=== PATIENT | female | born 1955 | race Caucasian/White ===

== ENCOUNTER 2016-11-20 10:52 | Emergency (ER) | payer MEDICARE, MEDICAID ==
[~2016-11-20] VITALS: Ht 162.6 cm; Wt 71.0 kg
[~2016-11-20 10:52] MED LIST: ALBU8.5H5 INH; ASPI-515 PO; BECL8.7A6 INH; CALC-545 PO; CHOL10003 PO; DOCU250C63 PO; ETOD400T PO; FLUT9.9S NAS; HYDR-3307 PO; HYDR25TA6 PO; IBUP-1221 PO; IPRA12.9 INH; LISI40TA PO; LORA1TAB PO; LOSA100T6 PO; LOVA20TA2 PO; METH750T2 PO; METR500T PO; NITR1PAT26 TD; NORT50CA PO; OLAN10TA9 PO; OMEP-110 PO; POTA20TA14 PO; PROC25SU25 PR; TRAM50TA2 PO; ZOLP-413 PO; [UNRECOGNIZED DRUG - CODE] PO
[2016-11-20] MEDS ORDERED: SODIUM CHLORIDE 0.9% 1,000 ML IV ONE (11:01)
[2016-11-20 11:17] LABS: HEMATOCRIT 39.4 % (34.6-47.8); HEMOGLOBIN 13.6 g/dL (11.7-16.4); WHITE BLOOD COUNT 7.6 x10^3/uL (3.4-10)
[2016-11-20 11:30] LABS: ASPARTATE AMINO TRANSFERASE 31 U/L (15-37); BLOOD UREA NITROGEN 6 mg/dL (7-18)
[2016-11-20] MEDS ORDERED: SODIUM CHLORIDE FLUSH 10ML SYR IVF ONE (11:30)
[2016-11-20] MEDS ORDERED: LORazepam 2 MG/ML, 1ML IVPush ONE (11:30)
[2016-11-20 11:36] LABS: IS PT STATUS REG ER OR PRE ER? YES
[2016-11-20 12:18] VITALS: BP 166/90
[2016-11-20] MEDS ORDERED: LORazepam 1MG TABLET ONE (13:19)
[2016-11-20] MEDS ORDERED: LORazepam 0.5MG TABLET PO ONE (13:30)
== END 2016-11-20 13:32 | disposition home or self-care (01) ==
LOC: ED 13:00
DX: R07.89 Other chest pain (principal); I11.9 Hypertensive heart disease without heart failure; J44.9 Chronic obstructive pulmonary disease, unspecified; Z88.0 Allergy status to penicillin; Z88.1 Allergy status to other antibiotic agents; Z88.2 Allergy status to sulfonamides; Z88.8 Allergy status to other drugs, medicaments and biological substances
CPT/HCPCS: 36415; 71010; 80053; 84484; 85025; 93005; 96360; 96361; 99285; J7030

== ENCOUNTER 2016-11-22 07:26 | Day surgery (SDC) | payer MEDICARE, MEDICAID ==
[~2016-11-22] VITALS: Ht 162.6 cm; Wt 75.0 kg
[2016-11-22 08:12] VITALS: BP 196/91
[2016-11-22 08:18] LABS: HEMOGLOBIN 14.1 g/dL (11.7-16.4); WHITE BLOOD COUNT 5.7 x10^3/uL (3.4-10)
[2016-11-22 08:29] LABS: HEMATOCRIT 41.2 % (34.6-47.8)
[2016-11-22] MEDS ORDERED: MIDAZOLAM 1 MG/ML, 5ML ONE (08:35)
[2016-11-22] MEDS ORDERED: FENTANYL PF 100 MCG/2ML ONE (08:35)
[2016-11-22] MEDS ORDERED: HEPARIN 1,000 UNITS/ML, 10ML ONE (08:36)
[2016-11-22] MEDS ORDERED: BIVALIRUDIN 250 MG ONE (08:36)
[2016-11-22] MEDS ORDERED: VERAPAMIL 2.5 MG/ML, 2ML ONE (08:36)
[2016-11-22 08:38] LABS: BLOOD UREA NITROGEN 8 mg/dL (7-18)
[2016-11-22] MEDS ORDERED: METO25TA91 PO (08:51)
[2016-11-22] MEDS ORDERED: RISP0.5T3 PO (08:51)
[2016-11-22] MEDS ORDERED: GABA300C10 PO (08:51)
[2016-11-22] MEDS ORDERED: CLON0.1T PO (08:51)
[2016-11-22] MEDS ORDERED: NITR0.4T SL (08:51)
[2016-11-22] MEDS ORDERED: ACET500T76 PO (08:51)
[2016-11-22] MEDS ORDERED: ASPI-496 PO (08:51)
[2016-11-22] MEDS ORDERED: OMEP-110 PO (08:51)
[2016-11-22] MEDS ORDERED: IBUP-1222 PO (08:51)
[2016-11-22] MEDS ORDERED: LOSA100T6 PO (08:51)
[2016-11-22] MEDS ORDERED: TRAM50TA2 PO (08:51)
[2016-11-22] MEDS ORDERED: CYCL-259 PO (08:51)
[2016-11-22] MEDS ORDERED: DIPH25CA61 PO (08:51)
[2016-11-22] MEDS ORDERED: Lidoderm TD (08:51)
[2016-11-22] MEDS ORDERED: SODIUM CHLORIDE 0.9% 1,000 ML IV SCH (09:40)
[2016-11-22] MEDS ORDERED: LOSARTAN 50MG TABLET PO ONE (10:43)
[2016-11-22] MEDS ORDERED: METOPROLOL TARTRATE 25 MG TABLET PO ONE (10:43)
[2016-11-22] MEDS ORDERED: LABETALOL 5MG/ML, 20ML IVPush PRN (11:00)
[2016-11-22] MEDS ORDERED: ACETAMINOPHEN 325 MG TABLET ONE (11:14)
[2016-11-22] MEDS ORDERED: LABETALOL 5MG/ML, 20ML ONE (13:08)
== END 2016-11-22 14:39 ==
LOC: CACL 07:26
PROVIDERS: ATTEND Internal Medicine Cardiovascular Disease
DX: I25.10 Atherosclerotic heart disease of native coronary artery without angina pectoris (principal); F41.9 Anxiety disorder, unspecified; I10 Essential (primary) hypertension; J44.9 Chronic obstructive pulmonary disease, unspecified; F32.9 Major depressive disorder, single episode, unspecified; Z88.1 Allergy status to other antibiotic agents; Z88.0 Allergy status to penicillin; Z88.8 Allergy status to other drugs, medicaments and biological substances
CPT/HCPCS: 36415; 80048; 85025; 85610; 85730; 93458; 99156; 99157; C1894; J1644; J2250; J3010; Q9967; J0583

== ENCOUNTER 2017-03-01 11:17 | Emergency (ER) | payer MEDICARE, MEDICAID ==
[~2017-03-01] VITALS: Ht 162.6 cm; Wt 75.0 kg
[~2017-03-01 11:17] MED LIST changes: +ACET500T76 PO; +ASPI-496 PO; +CLON0.1T PO; +CYCL-259 PO; +DIPH25CA61 PO; +GABA300C10 PO; +IBUP-1222 PO; +Lidoderm TD; +METO25TA91 PO; +NITR0.4T SL; +RISP0.5T3 PO
[2017-03-01] MEDS ORDERED: LORazepam 1MG TABLET ONE (12:54)
[2017-03-01] MEDS ORDERED: KETOROLAC 30 MG/1 ML ONE (12:54)
[2017-03-01] MEDS ORDERED: LORazepam 1MG TABLET PO ONE (13:00)
[2017-03-01] MEDS ORDERED: KETOROLAC 30 MG/1 ML IM ONE (13:00)
[2017-03-01 13:04] VITALS: BP 133/91
== END 2017-03-01 13:05 | disposition home or self-care (01) ==
LOC: ED 12:03
DX: S20.212A Contusion of left front wall of thorax, initial encounter (principal); S80.01XA Contusion of right knee, initial encounter; S40.011A Contusion of right shoulder, initial encounter; I10 Essential (primary) hypertension; E11.9 Type 2 diabetes mellitus without complications; W19.XXXA Unspecified fall, initial encounter; Y99.8 Other external cause status; Y93.89 Activity, other specified; Y92.89 Other specified places as the place of occurrence of the external cause
CPT/HCPCS: 71020; 96372; 99284; J1885

== ENCOUNTER → 2017-06-10 | Outpatient (CLI) | payer MEDICARE, MEDICAID ==
[2017-06-10 15:46] LABS: BASOPHILS # (AUTO) 0.02 x10^3/uL (0-0.1); BASOPHILS % (AUTO) 0 % (0-1); EOSINOPHILS # (AUTO) 0.01 x10^3/uL (0-0.4); EOSINOPHILS % (AUTO) 0 % (1-7); LYMPHOCYTES # (AUTO) 1.39 x10^3/uL (1-3.4); LYMPHOCYTES % (AUTO) 14 % (22-44); MD NO; MEAN CORPUSCULAR HGB CONC 33.1 g/dL (32.4-35.8); MEAN CORPUSCULAR VOLUME 96.8 fL (80-100); MEAN PLATELET VOLUME 9.3 fL (7.4-10.4); MONOCYTES # (AUTO) 0.67 x10^3/uL (0.2-0.8); MONOCYTES % (AUTO) 7 % (2-9); NEUTROPHILS # (AUTO) 7.95 x10^3/uL (1.8-6.8); NEUTROPHILS % (AUTO) 79 % (42-75); PLATELET COUNT 247 x10^3/uL (130-400); RED BLOOD COUNT 4.58 x10^6/uL (3.82-5.3); RED CELL DISTRIBUTION WIDTH 13.4 % (9.6-15.2)
[2017-06-10 15:56] LABS: ALBUMIN 3.6 g/dL (3.4-5.0); ANION GAP 7 mmol/L (5-15); CALCIUM 8.4 mg/dL (8.5-10.1); CHLORIDE 109 mmol/L (98-107)
[2017-06-10 16:07] LABS: ALANINE AMINOTRANSFERASE 32 U/L (12-78); ALKALINE PHOSPHATASE 59 U/L (45-117); BILIRUBIN,TOTAL 0.4 mg/dL (0.2-1.0); CHOL/HDL RATIO 2.3; CHOLESTEROL, TOTAL 142 mg/dL (140-239); CREATININE 0.85 mg/dL (0.55-1.02); FREE T4 (FREE THYROXINE) 1.31 ng/dL (0.76-1.46); HDL CHOL % 43 % (28-40); HDL CHOLESTEROL (DIRECT) 61 mg/dL (40-60); LDL CHOLESTEROL,CALCULATED 60 mg/dL (54-169); THYROID STIMULATING HORMONE 0.112 mIU/L (0.358-3.740); TOTAL PROTEIN 7.2 g/dL (6.4-8.2); TRIGLYCERIDES 104 mg/dL (50-200); VLDL CHOLESTEROL 21 mg/dL (0-25)
== END | disposition home or self-care (01) ==
LOC: LAB 12:25
PROVIDERS: ATTEND Registered Nurse
DX: M54.5 Low back pain (principal); I10 Essential (primary) hypertension; E11.9 Type 2 diabetes mellitus without complications; Z79.899 Other long term (current) drug therapy
CPT/HCPCS: 36415; 80053; 80061; 84439; 84443; 85025

== ENCOUNTER → 2018-01-09 | Outpatient (CLI) | payer MEDICARE, MEDICAID ==
[~2018-01-09] MED LIST changes: +BUDE10.22 INH; +CHOL5000 PO; -LOSA100T6 PO; +LOSA100T7 PO; +METO-99 PO; -NORT50CA PO; +NORT50CA52 PO; +TIZA2TAB PO; +UMEC1DIS INH; +ZOLP5TAB6 PO
[2018-01-09 13:07] LABS: BASOPHILS # (AUTO) 0.02 x10^3/uL (0-0.1); BASOPHILS % (AUTO) 0 % (0-1); EOSINOPHILS # (AUTO) 0.07 x10^3/uL (0-0.4); EOSINOPHILS % (AUTO) 1 % (1-7); LYMPHOCYTES # (AUTO) 1.67 x10^3/uL (1-3.4); LYMPHOCYTES % (AUTO) 23 % (22-44); MD NO; MEAN CORPUSCULAR HEMOGLOBIN 31.8 pg (27.0-34.8); MEAN CORPUSCULAR HGB CONC 33.8 g/dL (32.4-35.8); MEAN CORPUSCULAR VOLUME 94.1 fL (80-100); MEAN PLATELET VOLUME 9.5 fL (7.4-10.4); MONOCYTES # (AUTO) 0.51 x10^3/uL (0.2-0.8); MONOCYTES % (AUTO) 7 % (2-9); NEUTROPHILS # (AUTO) 5.05 x10^3/uL (1.8-6.8); NEUTROPHILS % (AUTO) 69 % (42-75); PLATELET COUNT 249 x10^3/uL (130-400); RED BLOOD COUNT 4.91 x10^6/uL (3.82-5.3); RED CELL DISTRIBUTION WIDTH 13.2 % (9.6-15.2)
[2018-01-09 13:15] LABS: ALBUMIN 3.8 g/dL (3.4-5.0); ANION GAP 6 mmol/L (5-15); CALCIUM 9.2 mg/dL (8.5-10.1); CHLORIDE 112 mmol/L (98-107); GAMMA GLUTAMYL TRANSPEPTIDASE 45 U/L (5-55)
[2018-01-09 13:19] LABS: ALANINE AMINOTRANSFERASE 29 U/L (12-78); ALKALINE PHOSPHATASE 92 U/L (45-117); BILIRUBIN,TOTAL 0.4 mg/dL (0.2-1.0); CREATININE 0.85 mg/dL (0.55-1.02)
== END | disposition home or self-care (01) ==
LOC: CFH 10:30
PROVIDERS: ATTEND Physician Assistant
DX: B18.2 Chronic viral hepatitis C (principal); Z86.010 Personal history of colon polyps
CPT/HCPCS: 36415; 80053; 82107; 82977; 85025; 86038; 86705; 86803; 87521

== ENCOUNTER → 2018-02-02 | Outpatient (CLI) | payer MEDICARE, MEDICAID | END | disposition home or self-care (01) | LOC: CFH 07:05 | PROVIDERS: ATTEND Physician Assistant | DX: B18.2 Chronic viral hepatitis C (principal); Z90.49 Acquired absence of other specified parts of digestive tract | CPT/HCPCS: 76700 ==

== ENCOUNTER 2018-04-15 11:24 | Outpatient (CLI) | payer MEDICARE, MEDICAID ==
[~2018-04-15 11:24] MED LIST changes: -CLON0.1T PO; +CLON0.1T22 PO; +LOSA100T14 PO; -LOSA100T7 PO
[2018-04-15 11:47] LABS: BASOPHILS # (AUTO) 0.03 x10^3/uL (0-0.1); BASOPHILS % (AUTO) 1 % (0-1); EOSINOPHILS # (AUTO) 0.05 x10^3/uL (0-0.4); EOSINOPHILS % (AUTO) 1 % (1-7); LYMPHOCYTES # (AUTO) 1.93 x10^3/uL (1-3.4); LYMPHOCYTES % (AUTO) 32 % (22-44); MD NO; MEAN CORPUSCULAR HEMOGLOBIN 31.6 pg (27.0-34.8); MEAN CORPUSCULAR VOLUME 92.9 fL (80-100); MEAN PLATELET VOLUME 8.9 fL (7.4-10.4); MONOCYTES # (AUTO) 0.38 x10^3/uL (0.2-0.8); MONOCYTES % (AUTO) 6 % (2-9); NEUTROPHILS # (AUTO) 3.62 x10^3/uL (1.8-6.8); NEUTROPHILS % (AUTO) 60 % (42-75); PLATELET COUNT 195 x10^3/uL (130-400); RED BLOOD COUNT 4.53 x10^6/uL (3.82-5.3); RED CELL DISTRIBUTION WIDTH 13.2 % (9.6-15.2)
[2018-04-15 12:01] LABS: ALBUMIN 3.4 g/dL (3.4-5.0); ANION GAP 2 mmol/L (5-15); CALCIUM 9.4 mg/dL (8.5-10.1); CHLORIDE 105 mmol/L (98-107)
[2018-04-15 12:05] LABS: ALANINE AMINOTRANSFERASE 29 U/L (12-78); ALKALINE PHOSPHATASE 92 U/L (45-117); BILIRUBIN,TOTAL 0.6 mg/dL (0.2-1.0); CHOLESTEROL, TOTAL 163 mg/dL (140-239); CREATININE 0.94 mg/dL (0.55-1.02); HDL CHOL % 34 % (28-40); HDL CHOLESTEROL (DIRECT) 55 mg/dL (40-60); LDL CHOLESTEROL,CALCULATED 86 mg/dL (54-169); LDL/HDL RATIO 1.6 (0.5-3.0); TOTAL PROTEIN 7.4 g/dL (6.4-8.2); TRIGLYCERIDES 111 mg/dL (50-200); VLDL CHOLESTEROL 22 mg/dL (0-25)
== END 2018-04-15 23:59 | disposition home or self-care (01) ==
LOC: LAB 11:24
PROVIDERS: ATTEND Physician Assistant
DX: Z51.81 Encounter for therapeutic drug level monitoring (principal); I10 Essential (primary) hypertension; B18.2 Chronic viral hepatitis C; Z86.010 Personal history of colon polyps
CPT/HCPCS: 36415; 80053; 80061; 85025; 86038; 86704; 87522

== ENCOUNTER 2018-06-26 13:56 | Outpatient (CLI) | payer MEDICARE, MEDICAID ==
[2018-06-26 14:28] LABS: BASOPHILS # (AUTO) 0.05 x10^3/uL (0-0.1); BASOPHILS % (AUTO) 1 % (0-1); EOSINOPHILS # (AUTO) 0.05 x10^3/uL (0-0.4); EOSINOPHILS % (AUTO) 1 % (1-7); LYMPHOCYTES % (AUTO) 14 % (22-44); MD NO; MEAN CORPUSCULAR HEMOGLOBIN 32.1 pg (27.0-34.8); MEAN CORPUSCULAR HGB CONC 34.4 g/dL (32.4-35.8); MEAN CORPUSCULAR VOLUME 93.2 fL (80-100); MEAN PLATELET VOLUME 8.4 fL (7.4-10.4); MONOCYTES # (AUTO) 0.49 x10^3/uL (0.2-0.8); MONOCYTES % (AUTO) 5 % (2-9); NEUTROPHILS # (AUTO) 7.23 x10^3/uL (1.8-6.8); NEUTROPHILS % (AUTO) 79 % (42-75); PLATELET COUNT 230 x10^3/uL (130-400)
[2018-06-26 14:38] LABS: ANION GAP 8 mmol/L (5-15); CALCIUM 9.5 mg/dL (8.5-10.1); CHLORIDE 109 mmol/L (98-107)
[2018-06-26 14:43] LABS: ALANINE AMINOTRANSFERASE 35 U/L (12-78); ALKALINE PHOSPHATASE 90 U/L (45-117); BILIRUBIN,TOTAL 0.8 mg/dL (0.2-1.0); CHOL/HDL RATIO 3.5; CHOLESTEROL, TOTAL 196 mg/dL (140-239); CREATININE 0.77 mg/dL (0.55-1.02); HDL CHOL % 29 % (28-40); HDL CHOLESTEROL (DIRECT) 56 mg/dL (40-60); LDL CHOLESTEROL,CALCULATED 122 mg/dL (54-169); LDL/HDL RATIO 2.2 (0.5-3.0); TRIGLYCERIDES 92 mg/dL (50-200); VLDL CHOLESTEROL 18 mg/dL (0-25)
[2018-06-26 14:45] LABS: HEMOGLOBIN A1C 5.6 % (4.2-6.3)
== END 2018-06-26 23:59 | disposition home or self-care (01) ==
LOC: LAB 13:56
PROVIDERS: ATTEND Registered Nurse
DX: B18.2 Chronic viral hepatitis C (principal); E78.5 Hyperlipidemia, unspecified; I10 Essential (primary) hypertension; I25.10 Atherosclerotic heart disease of native coronary artery without angina pectoris; J44.9 Chronic obstructive pulmonary disease, unspecified; J96.11 Chronic respiratory failure with hypoxia; Z79.899 Other long term (current) drug therapy
CPT/HCPCS: 36415; 80053; 80061; 82306; 83036; 85025

== ENCOUNTER 2018-08-22 23:48 | Emergency (ER) | payer MEDICARE, MEDICAID ==
[~2018-08-22] VITALS: Ht 162.6 cm; Wt 81.0 kg
[~2018-08-22 23:48] MED LIST changes: -NITR0.4T SL; +NITR0.4T41 SL
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
[2018-08-23] MEDS ORDERED: MORPHINE SULFATE 4 MG/ML, 1ML IVPush PRN (00:30)
[2018-08-23] MEDS ORDERED: LORazepam 2 MG/ML, 1ML IVPush ONE (00:30)
[2018-08-23] MEDS ORDERED: ONDANSETRON 2MG/ML, 2ML IVPush ONE (00:30)
[2018-08-23] MEDS ORDERED: SODIUM CHLORIDE 0.9% 1,000ML IVBOLUS ONE (00:30)
--- NOTE | 2018-08-23 00:35 | NUR ---
received report from ZEUS Chinchilla.
[2018-08-23] MEDS ORDERED: ONDANSETRON 2MG/ML, 2ML ONE (00:49)
[2018-08-23] MEDS ORDERED: LORazepam 2 MG/ML, 1ML ONE (00:50)
[2018-08-23] MEDS ORDERED: MORPHINE SULFATE 4 MG/ML, 1ML ONE (00:50)
--- NOTE | 2018-08-23 00:50 | NUR ---
IV placed. blood drawn and sent to lab. [facility]. medicated for pain and nausea.
[2018-08-23 01:05] LABS: BASOPHILS # (AUTO) 0.07 x10^3/uL (0-0.1); BASOPHILS % (AUTO) 1 % (0-1); EOSINOPHILS # (AUTO) 0.06 x10^3/uL (0-0.4); EOSINOPHILS % (AUTO) 1 % (1-7); LYMPHOCYTES # (AUTO) 1.92 x10^3/uL (1-3.4); LYMPHOCYTES % (AUTO) 22 % (22-44); MD NO; MEAN CORPUSCULAR HEMOGLOBIN 32.1 pg (27.0-34.8); MEAN CORPUSCULAR HGB CONC 32.7 g/dL (32.4-35.8); MEAN CORPUSCULAR VOLUME 97.9 fL (80-100); MEAN PLATELET VOLUME 7.9 fL (7.4-10.4); MONOCYTES # (AUTO) 0.77 x10^3/uL (0.2-0.8); MONOCYTES % (AUTO) 9 % (2-9); NEUTROPHILS # (AUTO) 5.86 x10^3/uL (1.8-6.8); NEUTROPHILS % (AUTO) 67 % (42-75); PLATELET COUNT 252 x10^3/uL (130-400); RED BLOOD COUNT 3.97 x10^6/uL (3.82-5.3); RED CELL DISTRIBUTION WIDTH 13.5 % (9.6-15.2)
[2018-08-23 01:17] LABS: ALANINE AMINOTRANSFERASE 22 U/L (12-78); ALBUMIN 3.4 g/dL (3.4-5.0); ANION GAP 7 mmol/L (5-15); CALCIUM 9.1 mg/dL (8.5-10.1); CHLORIDE 110 mmol/L (98-107)
[2018-08-23 01:21] LABS: ALKALINE PHOSPHATASE 64 U/L (45-117); BILIRUBIN,TOTAL 0.3 mg/dL (0.2-1.0); TOTAL PROTEIN 7.3 g/dL (6.4-8.2); TROPONIN I < 0.015 ng/mL (0.000-0.045)
--- NOTE | 2018-08-23 02:16 | NUR ---
back from CT scan and X ray. awaiting results.
--- NOTE | 2018-08-23 03:19 | NUR ---
labs and ct scan resulted. chart up for MD to re-eval. patient sleeping. VSS.
--- NOTE | 2018-08-23 03:54 | NUR ---
ERP at bedside for re-evaluation.
[2018-08-23 04:04] VITALS: BP 129/67
--- NOTE | 2018-08-23 04:33 | NUR ---
patient discharged with instruction. verbalized understanding. wheeled to Discharge area.
== END 2018-08-23 04:35 | disposition home or self-care (01) ==
LOC: ED 08-23 03:14
DX: G89.21 Chronic pain due to trauma (principal); M54.6 Pain in thoracic spine; F41.1 Generalized anxiety disorder; L03.116 Cellulitis of left lower limb; E11.9 Type 2 diabetes mellitus without complications; I10 Essential (primary) hypertension; J44.9 Chronic obstructive pulmonary disease, unspecified; R42 Dizziness and giddiness; Z86.19 Personal history of other infectious and parasitic diseases; Z90.49 Acquired absence of other specified parts of digestive tract
CPT/HCPCS: 36415; 71045; 72072; 72125; 73502; 80053; 84484; 85025; 93005; 96361; 96374; 96375; 99284; J2060; J2270; J2405; J7030

== ENCOUNTER 2018-10-14 10:06 | Outpatient (CLI) | payer MEDICARE, MEDICAID ==
[~2018-10-14 10:06] MED LIST changes: -HYDR-3307 PO; +HYDR-36 PO; -TIZA2TAB PO; +TIZA2TAB2 PO
[2018-10-14 10:24] LABS: BASOPHILS # (AUTO) 0.03 x10^3/uL (0-0.1); BASOPHILS % (AUTO) 0 % (0-1); EOSINOPHILS # (AUTO) 0.14 x10^3/uL (0-0.4); EOSINOPHILS % (AUTO) 2 % (1-7); LYMPHOCYTES # (AUTO) 1.82 x10^3/uL (1-3.4); LYMPHOCYTES % (AUTO) 24 % (22-44); MD NO; MEAN CORPUSCULAR HEMOGLOBIN 32.5 pg (27.0-34.8); MEAN CORPUSCULAR HGB CONC 33.5 g/dL (32.4-35.8); MEAN CORPUSCULAR VOLUME 96.9 fL (80-100); MEAN PLATELET VOLUME 8.8 fL (7.4-10.4); MONOCYTES # (AUTO) 0.51 x10^3/uL (0.2-0.8); MONOCYTES % (AUTO) 7 % (2-9); NEUTROPHILS # (AUTO) 5.14 x10^3/uL (1.8-6.8); NEUTROPHILS % (AUTO) 67 % (42-75); PLATELET COUNT 221 x10^3/uL (130-400); RED BLOOD COUNT 4.75 x10^6/uL (3.82-5.3); RED CELL DISTRIBUTION WIDTH 12.6 % (9.6-15.2)
[2018-10-14 12:45] LABS: CHLORIDE 108 mmol/L (98-107)
[2018-10-14 12:58] LABS: ALANINE AMINOTRANSFERASE 19 U/L (12-78); ALBUMIN 3.6 g/dL (3.4-5.0); ALKALINE PHOSPHATASE 67 U/L (45-117); ANION GAP 4 mmol/L (5-15); BILIRUBIN,TOTAL 0.5 mg/dL (0.2-1.0); CHOL/HDL RATIO 3.7; CHOLESTEROL, TOTAL 243 mg/dL (140-239); CREATININE 0.82 mg/dL (0.55-1.02); HDL CHOL % 27 % (28-40); HDL CHOLESTEROL (DIRECT) 65 mg/dL (40-60); LDL CHOLESTEROL,CALCULATED 158 mg/dL (54-169); LDL/HDL RATIO 2.4 (0.5-3.0); TOTAL PROTEIN 7.7 g/dL (6.4-8.2); TRIGLYCERIDES 100 mg/dL (50-200); VLDL CHOLESTEROL 20 mg/dL (0-25)
== END 2018-10-14 23:59 | disposition home or self-care (01) ==
LOC: LAB 10:06
PROVIDERS: ATTEND Internal Medicine Cardiovascular Disease
DX: E78.5 Hyperlipidemia, unspecified (principal); I10 Essential (primary) hypertension; I25.10 Atherosclerotic heart disease of native coronary artery without angina pectoris; J44.9 Chronic obstructive pulmonary disease, unspecified; J96.11 Chronic respiratory failure with hypoxia
CPT/HCPCS: 36415; 80053; 80061; 85025; 87522

== ENCOUNTER 2019-03-25 11:58 | Inpatient (IN) | payer MEDICARE, MEDICAID ==
[~2019-03-25] VITALS: Ht 162.6 cm; Wt 79.4 kg
[~2019-03-25 11:58] MED LIST changes: +HYDR-3246 PO; -HYDR-36 PO; -TIZA2TAB2 PO; +TIZA2TAB4 PO
--- NOTE | 2019-03-25 13:24 | NUR ---
BRANCH ACCOUNT MANAGER: PT TO ROOM FROM LOBBY, GAIT SLOW AND STEADY
[2019-03-25] MEDS ORDERED: NITROGLYCERIN SINGLE TAB 0.4 MG SL ONE (14:19)
[2019-03-25] MEDS ORDERED: ASPIRIN 81 MG TABLET CHEW ONE (14:19)
[2019-03-25] MEDS ORDERED: ASPIRIN 81 MG TABLET CHEW PO ONE (14:30)
[2019-03-25] MEDS ORDERED: NITROGLYCERIN SINGLE TAB 0.4 MG SL PRN (14:30)
--- NOTE | 2019-03-25 14:38 | NUR ---
attempt x2 for labs/iv, failed. meds per may. cxr done. call bills in reach. as
--- NOTE | 2019-03-25 15:12 | NUR ---
cxr NEW SMALL FOCUS OF SUBSEGMENTAL ATELECTASIS/PATCHY PULMONARY OPACITY AT THE LEFT LUNG BASE
[2019-03-25] MEDS ORDERED: SODIUM CHLORIDE FLUSH 10ML SYR IVF ONE (15:30)
[2019-03-25 15:32] LABS: BASOPHILS # (AUTO) 0.02 x10^3/uL (0-0.1); BASOPHILS % (AUTO) 0 % (0-1); EOSINOPHILS # (AUTO) 0.06 x10^3/uL (0-0.4); EOSINOPHILS % (AUTO) 1 % (1-7); LYMPHOCYTES # (AUTO) 1.52 x10^3/uL (1-3.4); LYMPHOCYTES % (AUTO) 19 % (22-44); MD NO; MEAN CORPUSCULAR HEMOGLOBIN 31.9 pg (27.0-34.8); MEAN CORPUSCULAR HGB CONC 33.6 g/dL (32.4-35.8); MEAN PLATELET VOLUME 8.2 fL (7.4-10.4); MONOCYTES # (AUTO) 0.52 x10^3/uL (0.2-0.8); MONOCYTES % (AUTO) 7 % (2-9); NEUTROPHILS # (AUTO) 5.85 x10^3/uL (1.8-6.8); NEUTROPHILS % (AUTO) 73 % (42-75); PLATELET COUNT 227 x10^3/uL (130-400); RED BLOOD COUNT 3.31 x10^6/uL (3.82-5.3); RED CELL DISTRIBUTION WIDTH 14.1 % (9.6-15.2)
[2019-03-25 15:37] LABS: ALBUMIN 3.8 g/dL (3.4-5.0); ANION GAP 5 mmol/L (5-15); CALCIUM 9.1 mg/dL (8.5-10.1); CHLORIDE 113 mmol/L (98-107)
[2019-03-25 15:41] LABS: TROPONIN I < 0.015 ng/mL (0.000-0.045)
--- NOTE | 2019-03-25 15:46 | NUR ---
oob to bathroom steady gait up for recheck. as
--- NOTE | 2019-03-25 15:48 | NUR ---
pt took home tramadol per dr. willard for pain.as
[2019-03-25] MEDS ORDERED: OLAN20TA10 PO (17:52)
[2019-03-25] MEDS ORDERED: methylPREDNISolone SOD SUCC 40 MG/ML ONE (18:23)
[2019-03-25] MEDS ORDERED: LEVOFLOXACIN/PMX 750MG/150ML 150 ML ONE (18:23)
[2019-03-25] MEDS ORDERED: ENOXAPARIN 40 MG/0.4 ML ONE (18:23)
[2019-03-25] MEDS ORDERED: ACETAMINOPHEN 325 MG TABLET PO PRN (18:30)
[2019-03-25] MEDS ORDERED: hydrALAzine 20 MG/ML, 1ML IVPush PRN (18:30)
[2019-03-25] MEDS ORDERED: ONDANSETRON 2MG/ML, 2ML IVPush PRN (18:30)
[2019-03-25] MEDS: LEVOFLOXACIN/PMX 750MG/150ML 150 ML IV SCH (18:38)
[2019-03-25] MEDS: methylPREDNISolone SOD SUCC 40 MG/ML IV SCH (18:38)
[2019-03-25] MEDS: ENOXAPARIN 40 MG/0.4 ML SQ SCH (18:38)
[2019-03-25 18:47] LABS: TROPONIN I < 0.015 ng/mL (0.000-0.045)
--- NOTE | 2019-03-25 20:00 | NUR ---
pt continually oob to bathroom, pacing around room. eating. asking for coffee/pain meds. sts chest pain is improved. nsr on mointor 70s.
[2019-03-25] MEDS: TEMPLATE NON-FORMULARY MED. (Budesonide/Formoterol Fumarate (Symbicort 80-4.5 Mcg Inhaler) INH SCH (21:00)
[2019-03-25] MEDS: LAMOTRIGINE 200 MG TABLET PO SCH ×2 (21:00→21:41)
[2019-03-25] MEDS: METOPROLOL TARTRATE 100 MG TAB PO SCH (21:00)
[2019-03-25] MEDS: ALBUTEROL SULFATE 2.5 MG/3 ML NPPB SCH (21:00)
[2019-03-25] MEDS ORDERED: GABAPENTIN 300 MG CAPSULE ONE (21:19)
[2019-03-25] MEDS ORDERED: OMEPRAZOLE 20 MG CAPSULE.DR ONE (21:19)
[2019-03-25] MEDS ORDERED: METOPROLOL TARTRATE 25 MG TAB ONE (21:19)
[2019-03-25] MEDS: GABAPENTIN 300 MG CAPSULE PO SCH (21:24)
[2019-03-25] MEDS: OMEPRAZOLE 20 MG CAPSULE.DR PO SCH (21:24)
[2019-03-25] MEDS ORDERED: ALBUTEROL SULFATE 2.5MG/0.5ML NPPB PRN (21:30)
[2019-03-25] MEDS ORDERED: HYDROcodone/APAP 10/325 MG TABLET ONE (21:50)
[2019-03-25] MEDS: HYDROcodone/APAP 10/325 MG TABLET PO PRN (21:52)
--- NOTE | 2019-03-25 21:54 | NUR ---
pt oob to phone in hallway and back. placed on 2 lnc. c/o anxiety re: dog. given hydrocodone for back pain. vss. as
[2019-03-25] MEDS ORDERED: ALBUTEROL SULFATE 2.5 MG/3 ML ONE (22:08)
--- NOTE | 2019-03-26 00:06 | NUR ---
PT SITTING IN BED WRITING. NSR ON MONITOR. VSS. BP IMPROVED. NO COMPLAINTS AT THIS TIME. STS PAIN IMPROVED AFTER NORCO. STS TIGHTNESS IN CHEST IMPROVED AT THIS MOMENT. AWAITING BED, CALL GODFREY IN REACH.
[2019-03-26 00:43] LABS: TROPONIN I < 0.015 ng/mL (0.000-0.045)
--- NOTE | 2019-03-26 00:49 | NUR ---
REPORT FROM ZEUS ACOSTA.
--- NOTE | 2019-03-26 01:21 | NUR ---
PT FOUND SMOKING CIGARETTE IN PATIENT RESTROOM. ERP NOTIFIED. PT COOPERATIVE ABOUT PUTTING IT OUT, OFFERED A NICOTINE PATCH AT THIS TIME. DENIES ANY FURTHER NEEDS OR CONCERNS AT THIS TIME, CALL LIGHT IN REACH.
[2019-03-26] MEDS ORDERED: NICOTINE 14MG/24 HR PATCH.TD24 TD ONE (01:30)
[2019-03-26] MEDS: ALBUTEROL SULFATE 2.5 MG/3 ML NPPB SCH ×4 (03:00→20:26)
[2019-03-26] MEDS ORDERED: ALBUTEROL SULFATE 2.5 MG/3 ML ONE (03:43)
--- NOTE | 2019-03-26 03:53 | NUR ---
PT PROVIDED WITH SNACKS, ICE PACKS, AND BLANK PAPER PER REQUEST. PT WISHES TO BE DISCHARGED SO THAT SHE CAN TAKE CARE OF HER DOG. HOSPITALIST CALLED AND NOTIFIED, STATES THEY WILL REASSESS HER IN THE MORNING. PT DENIES ANY FURTHER NEEDS OR CONCERNS AT THIS TIME. CALL LIGHT IN REACH.
[2019-03-26 04:44] LABS: BASOPHILS % (AUTO) 0 % (0-1); EOSINOPHILS % (AUTO) 0 % (1-7); LYMPHOCYTES # (AUTO) 0.47 x10^3/uL (1-3.4); LYMPHOCYTES % (AUTO) 9 % (22-44); MD NO; MEAN CORPUSCULAR HEMOGLOBIN 31.6 pg (27.0-34.8); MEAN CORPUSCULAR HGB CONC 33.3 g/dL (32.4-35.8); MEAN CORPUSCULAR VOLUME 94.7 fL (80-100); MONOCYTES # (AUTO) 0.03 x10^3/uL (0.2-0.8); MONOCYTES % (AUTO) 1 % (2-9); NEUTROPHILS # (AUTO) 4.49 x10^3/uL (1.8-6.8); NEUTROPHILS % (AUTO) 90 % (42-75); PLATELET COUNT 279 x10^3/uL (130-400); RED BLOOD COUNT 3.76 x10^6/uL (3.82-5.3); RED CELL DISTRIBUTION WIDTH 13.8 % (9.6-15.2)
[2019-03-26 04:54] LABS: ANION GAP 6 mmol/L (5-15); CALCIUM 9.6 mg/dL (8.5-10.1); CHLORIDE 108 mmol/L (98-107); CREATININE 0.85 mg/dL (0.55-1.02)
[2019-03-26 04:57] LABS: TROPONIN I < 0.015 ng/mL (0.000-0.045)
--- NOTE | 2019-03-26 05:45 | NUR ---
PT DOES NOT WANT TO SLEEP. WALKING IN HALLWAY WITH SUNGLASSES ON, GOWN ON BACKWARDS AND TIED ACROSS SHOULDER LIKE A TOGA. ASSISTED BACK TO BED. PT HAS MANY COMPLAINTS, AND HAS WRITTEN A 3 PAGE LIST OF REQUESTS ON BLANK PAPER, INCLUDING A LONG NOTE EXPLAINING THAT SHE SHOULD BE DISCHARGED THIS MORNING IN ORDER TO BETTER CARE FOR HER DOG. PT EMOTIONALLY LABILE, BUT REDIRECTABLE. CALL LIGHT IN REACH.
[2019-03-26] MEDS ORDERED: HYDROcodone/APAP 10/325 MG TABLET ONE ×3 (05:49→16:26)
[2019-03-26] MEDS ORDERED: methylPREDNISolone SOD SUCC 40 MG/ML ONE (07:29)
[2019-03-26] MEDS ORDERED: NICOTINE 14MG/24 HR PATCH.TD24 ONE (07:30)
[2019-03-26] MEDS ORDERED: METOPROLOL TARTRATE 50 MG TAB ONE (07:30)
[2019-03-26] MEDS ORDERED: GABAPENTIN 300 MG CAPSULE ONE ×2 (07:30→16:26)
[2019-03-26] MEDS ORDERED: OMEPRAZOLE 20 MG CAPSULE.DR ONE (07:30)
[2019-03-26] MEDS ORDERED: ASPIRIN 81 MG TABLET EC ONE (07:30)
--- NOTE | 2019-03-26 08:07 | NUR ---
PT RESTING NEXT TO HOSPITAL BED, WRITING IN JOURNAL. PT STATES SHE IS WEARING A HAT AND NEEDS TO BREAK IT IN FOR HER SISTERS BIRTHDAY. PT REQUESTING BREATHMINTS. PT STATES SHE WILL NEED TO GO HOME SO SHE CAN "HAND FEED HER DYING PUPPY" PT STATES, "I CAN TAKE MY PICC LINE HOME AND HAVE A NURSE COME TO MY HOUSE" PT REDIRECTED, THIS RN EXPLAINED TO PT REASON FOR ADMIT, STAFF IS UNABLE TO DISCHARGE PT HOME WITH PIV IN ARM AND LET A NURSE GO HOME WITH HER. VSS AT THIS TIME, AWAITING BREAKFAST TRAY. AWAITING MEDICATIONS FROM PHARMACY Addendum: 03/26/19 at 1125 by Everest SoftwareNajma Amendment undone in EDM - 03/26/19 at 1126 by SynforaSTACIE PT NOT REFUSING CARDIAC MONITORING EQUIPMENT AT THIS TIME, PT WOULD LIKE TO WONDER IN THE HALLS TO HELP WITH ANXIETY Addendum: 03/26/19 at 1127 by SynforaSTACIE PT REFUSING CARDIAC MONITORING EQUIPMENT AT THIS TIME, PT WOULD LIKE TO WONDER IN THE HALLS TO HELP WITH ANXIETY
[2019-03-26] MEDS: LAMOTRIGINE 200 MG TABLET PO SCH ×2 (08:39→21:12)
[2019-03-26] MEDS: methylPREDNISolone SOD SUCC 40 MG/ML IV SCH ×2 (08:39→20:14)
[2019-03-26] MEDS: METOPROLOL TARTRATE 100 MG TAB PO SCH ×2 (08:39→21:12)
[2019-03-26] MEDS: ASPIRIN 81 MG TABLET EC PO SCH (08:39)
[2019-03-26] MEDS: HYDROcodone/APAP 10/325 MG TABLET PO PRN ×3 (08:40→21:12)
[2019-03-26] MEDS: OMEPRAZOLE 20 MG CAPSULE.DR PO SCH ×2 (08:40→21:11)
[2019-03-26] MEDS: LOSARTAN 100 MG TAB PO SCH (08:40)
[2019-03-26] MEDS: GABAPENTIN 300 MG CAPSULE PO SCH ×3 (08:40→21:12)
[2019-03-26] MEDS: TEMPLATE NON-FORMULARY MED. (Budesonide/Formoterol Fumarate (Symbicort 80-4.5 Mcg Inhaler) INH SCH ×2 (08:46→21:07)
[2019-03-26] MEDS: OLANZAPINE 20 MG PO SCH (08:47)
[2019-03-26] MEDS: BUDESONIDE 0.5 MG/2 ML INHA NPPB SCH ×2 (09:00→20:26)
--- NOTE | 2019-03-26 09:49 | NUR ---
REPORT FROM MOISE SCHULZ. AT THIS TIME PT IS SITTING UP IN BED. PT EXPRESSES CONCERNS OF WANTING TO LEAVE TO TAKE CARE OF A SICK DOG AT HOME. PT EDUCATED ON THE NEED FOR STAYING BUT INFORMED THAT PROVIDER WOULD BE MADE AWARE OF CONCERNS.
--- NOTE | 2019-03-26 11:20 | NUR ---
PT RESTING IN BED AT THIS TIME. EQUAL CHEST RISE AND FALL OBSERVED FROM DOOR. CALL LIGHT IN REACH.
--- NOTE | 2019-03-26 11:55 | NUR ---
REPORT TO MEHRAN SCHULZ
--- NOTE | 2019-03-26 12:02 | NUR ---
PT STANDING AT BEDSIDE ARRANGING HER PAPERWORK. PT SAT FOR VS. KHOURY. PT ANXIOUS ABOUT DOG AT HOME AND IF FRIEND IS TAKING GOOD CARE OF IT.
--- NOTE | 2019-03-26 13:30 | NUR ---
PT AMBULATING BACK AND FORTH FROM ROOM TO PHONE ON THE WALL IN THE HALLWAY. PT AMBULATES WITH STEADY GAIT. PENG
--- NOTE | 2019-03-26 15:16 | NUR ---
PT LAYING ON HOSPITAL BED ON HER PHONE.
--- NOTE | 2019-03-26 15:58 | NUR ---
PLEASE ADMIT TO MEDICAL WITH TELEMETRY PER CURTIS BECKER.
--- NOTE | 2019-03-26 16:29 | NUR ---
MEDS ADMIN PER MAY.
--- NOTE | 2019-03-26 16:33 | NUR ---
PT SITTNG ON SIDE OF BED. NADN. SPEAKING IN FULL SENTENCES.
--- NOTE | 2019-03-26 17:20 | NUR ---
REPORT GIVEN TO JOSH SCHULZ.
[2019-03-26 19:33] VITALS: BP 174/85
[2019-03-26] MEDS: LEVOFLOXACIN/PMX 750MG/150ML 150 ML IV SCH (20:14)
[2019-03-26] MEDS: ENOXAPARIN 40 MG/0.4 ML SQ SCH (20:15)
[2019-03-26] MEDS: GUAIFENESIN 200 MG TABLET PO SCH (21:11)
[2019-03-26] MEDS: ZOLPIDEM 5MG TABLET PO PRN (21:12)
[2019-03-27] VITALS (12 sets, daily range): BP systolic 127–191; BP diastolic 61–97
[2019-03-27] MEDS: ALBUTEROL SULFATE 2.5 MG/3 ML NPPB SCH ×4 (01:27→20:06)
[2019-03-27] MEDS: HYDROcodone/APAP 10/325 MG TABLET PO PRN ×4 (03:16→20:43)
[2019-03-27 05:20] LABS: ANION GAP 9 mmol/L (5-15); CALCIUM 9.5 mg/dL (8.5-10.1); CHLORIDE 107 mmol/L (98-107)
[2019-03-27 05:21] LABS: CREATININE 0.92 mg/dL (0.55-1.02)
[2019-03-27] MEDS: GUAIFENESIN 200 MG TABLET PO SCH ×4 (05:28→20:41)
[2019-03-27 05:35] LABS: BASOPHILS # (AUTO) 0.01 x10^3/uL (0-0.1); BASOPHILS % (AUTO) 0 % (0-1); EOSINOPHILS % (AUTO) 0 % (1-7); LYMPHOCYTES # (AUTO) 0.56 x10^3/uL (1-3.4); LYMPHOCYTES % (AUTO) 6 % (22-44); MD NO; MEAN CORPUSCULAR HEMOGLOBIN 31.8 pg (27.0-34.8); MEAN CORPUSCULAR HGB CONC 33.1 g/dL (32.4-35.8); MONOCYTES % (AUTO) 4 % (2-9); NEUTROPHILS # (AUTO) 8.75 x10^3/uL (1.8-6.8); NEUTROPHILS % (AUTO) 90 % (42-75); PLATELET COUNT 292 x10^3/uL (130-400); RED BLOOD COUNT 3.76 x10^6/uL (3.82-5.3); RED CELL DISTRIBUTION WIDTH 13.8 % (9.6-15.2)
[2019-03-27] MEDS: ASPIRIN 81 MG TABLET EC PO SCH (09:19)
[2019-03-27] MEDS: LAMOTRIGINE 200 MG TABLET PO SCH ×2 (09:19→20:42)
[2019-03-27] MEDS: OMEPRAZOLE 20 MG CAPSULE.DR PO SCH ×2 (09:19→20:42)
[2019-03-27] MEDS: GABAPENTIN 300 MG CAPSULE PO SCH ×3 (09:19→20:42)
[2019-03-27] MEDS: LACTOBACILLUS CHEW TABLET PO SCH ×3 (09:19→20:42)
[2019-03-27] MEDS: METOPROLOL TARTRATE 100 MG TAB PO SCH ×2 (09:19→20:43)
[2019-03-27] MEDS: TEMPLATE NON-FORMULARY MED. (Budesonide/Formoterol Fumarate (Symbicort 80-4.5 Mcg Inhaler) INH SCH ×2 (09:21→20:36)
[2019-03-27] MEDS: OLANZAPINE 20 MG PO SCH (09:22)
[2019-03-27] MEDS: BUDESONIDE 0.5 MG/2 ML INHA NPPB SCH ×2 (09:43→20:06)
[2019-03-27] MEDS: SODIUM CHLORIDE 0.9% 1,000 ML IV SCH (11:14)
[2019-03-27] MEDS: ACETAMINOPHEN 325 MG TABLET PO PRN ×2 (11:29→16:31)
[2019-03-27] MEDS: LOSARTAN 100 MG TAB PO SCH (11:29)
[2019-03-27] MEDS ORDERED: OLAN10TA9 PO (13:59)
[2019-03-27] MEDS ORDERED: LIDODERM 5% PATCH TD SCH (14:00)
[2019-03-27] MEDS ORDERED: IBUPROFEN 200 MG TABLET PO PRN (14:00)
[2019-03-27] MEDS ORDERED: BISACODYL 10 MG SUPP PR PRN (18:00)
[2019-03-27] MEDS ORDERED: OLANZAPINE 5 MG TABLET ONE (20:08)
[2019-03-27] MEDS: ENOXAPARIN 40 MG/0.4 ML SQ SCH (20:38)
[2019-03-27] MEDS: OLANZAPINE 10 MG TABLET PO SCH (20:41)
[2019-03-27] MEDS: ZOLPIDEM 5MG TABLET PO PRN (20:43)
[2019-03-27] MEDS ORDERED: SENNA/DOCUSATE TABLET PO SCH (21:00)
[2019-03-28 01:08] VITALS: BP 125/70
[2019-03-28] MEDS ORDERED: LIDODERM REMOVE PATCH NOTE XX SCH (02:00)
[2019-03-28] MEDS: ALBUTEROL SULFATE 2.5 MG/3 ML NPPB SCH ×2 (03:00→08:58)
[2019-03-28] MEDS: ACETAMINOPHEN 325 MG TABLET PO PRN (04:02)
[2019-03-28] MEDS: GUAIFENESIN 200 MG TABLET PO SCH ×2 (04:03→12:17)
[2019-03-28] MEDS: HYDROcodone/APAP 10/325 MG TABLET PO PRN ×2 (04:03→09:19)
[2019-03-28] MEDS: SODIUM CHLORIDE 0.9% 1,000 ML IV SCH (04:03)
[2019-03-28 07:01] VITALS: BP 132/95
[2019-03-28] MEDS: TEMPLATE NON-FORMULARY MED. (Budesonide/Formoterol Fumarate (Symbicort 80-4.5 Mcg Inhaler) INH SCH (09:00)
[2019-03-28] MEDS: OLANZAPINE 20 MG PO SCH (09:00)
[2019-03-28] MEDS: OLANZAPINE 10 MG TABLET PO SCH (09:18)
[2019-03-28] MEDS: OMEPRAZOLE 20 MG CAPSULE.DR PO SCH (09:18)
[2019-03-28] MEDS: GABAPENTIN 300 MG CAPSULE PO SCH (09:18)
[2019-03-28] MEDS: ASPIRIN 81 MG TABLET EC PO SCH (09:18)
[2019-03-28] MEDS: METOPROLOL TARTRATE 100 MG TAB PO SCH (09:18)
[2019-03-28] MEDS: LOSARTAN 100 MG TAB PO SCH (09:57)
[2019-03-28] MEDS: LAMOTRIGINE 200 MG TABLET PO SCH (09:57)
[2019-03-28] MEDS: LACTOBACILLUS CHEW TABLET PO SCH (09:57)
[2019-03-28] MEDS ORDERED: ACID1TAB7 PO (10:57)
[2019-03-28] MEDS ORDERED: HYDR-3343 PO (10:57)
[2019-03-28] MEDS ORDERED: SENN-193 PO (10:57)
[2019-03-28] MEDS ORDERED: ATOR40TA78 PO (11:00)
[2019-03-28] MEDS ORDERED: NICOTINE 21 MG/24 HR PATCH.TD24 TD ONE (12:00)
[2019-03-28 13:37] VITALS: BP 158/78
[2019-08-05] MEDS ORDERED: ACID1CAP PO (17:57)
[2019-08-05] MEDS ORDERED: DOCU100C33 PO (17:57)
[2019-08-05] MEDS ORDERED: OLAN10TA7 PO (17:57)
[2019-08-05] MEDS ORDERED: HYDR-3245 PO (17:57)
[2019-08-05] MEDS ORDERED: ZOLP5TAB6 PO (17:57)
[2019-08-05] MEDS ORDERED: SIMV20TA19 PO (17:57)
[2019-08-05] MEDS ORDERED: GABA-827 PO (17:57)
[2019-08-05] MEDS ORDERED: LACT10SO PO-COUM (18:14)
[2019-08-05] MEDS ORDERED: BENZ-17 PO (18:14)
[2019-08-05] MEDS ORDERED: HALO5TAB5 PO (18:14)
[2019-08-05] MEDS ORDERED: PRED20TA PO (18:14)
[2019-08-05] MEDS ORDERED: CLIN300C8 PO (18:14)
[2019-08-05] MEDS ORDERED: NITR100C PO (18:14)
[2019-08-05] MEDS ORDERED: NALO0.4D2 IM (18:14)
[2019-08-05] MEDS ORDERED: IBUP-1223 PO (18:14)
[2019-08-05] MEDS ORDERED: ERGO500017 PO (18:14)
[2019-08-05] MEDS ORDERED: TIOT18CA INH (18:14)
[2019-08-05] MEDS ORDERED: NALO25TA PO (18:14)
[2019-08-05] MEDS ORDERED: NITR0.4T28 SL (18:14)
[2019-08-05] MEDS ORDERED: LACT1CAP3 PO (18:14)
[2019-08-05] MEDS ORDERED: NICO-487 TD (18:14)
[2019-08-05] MEDS ORDERED: TRAM50TA2 PO (18:14)
[2019-08-05] MEDS ORDERED: LAMO100T8 PO (18:14)
[2019-08-05] MEDS ORDERED: ALBUTEROL SUL 90 MCG INH (18:21)
[2019-08-05] MEDS ORDERED: VITAMIN B-12 INJ (18:24)
[2019-08-05] MEDS ORDERED: LIDO700A20 TD (18:26)
[2019-08-05] MEDS ORDERED: VISCOUS LIDOCAINE EXT (18:28)
[2019-08-05] MEDS ORDERED: L. A1CAP8 PO (18:30)
[2019-08-05] MEDS ORDERED: PLEC3TAB PO (18:32)
[2019-08-05] MEDS ORDERED: SENN1TAB94 PO (18:32)
[2019-08-05] MEDS ORDERED: VERA120T8 PO (18:32)
[2019-08-05] MEDS ORDERED: VIT1TABL46 PO (18:34)
[2019-08-06] MEDS ORDERED: METO-99 PO (11:14)
[2019-08-06] MEDS ORDERED: FLUT9.9S NAS (11:14)
[2019-08-06] MEDS ORDERED: ERGO500018 PO (11:14)
[2019-08-06] MEDS ORDERED: CYCL-259 PO (11:14)
[2019-08-06] MEDS ORDERED: ACET-1600 PO (11:14)
== END 2019-03-28 15:41 | disposition home or self-care (01) | DRG 191 ==
LOC: ED 16:31 → EDIP 16:32 → ED 16:52 → 4EST 03-26 18:28
PROVIDERS: ADMIT Hospitalist; ATTEND Internal Medicine
DX: J44.1 Chronic obstructive pulmonary disease with (acute) exacerbation (principal); J98.11 Atelectasis; E11.9 Type 2 diabetes mellitus without complications; F10.20 Alcohol dependence, uncomplicated; F17.200 Nicotine dependence, unspecified, uncomplicated; F31.9 Bipolar disorder, unspecified; F43.10 Post-traumatic stress disorder, unspecified; F60.3 Borderline personality disorder; W18.39XA Other fall on same level, initial encounter; G47.00 Insomnia, unspecified; F41.9 Anxiety disorder, unspecified; I10 Essential (primary) hypertension; I25.10 Atherosclerotic heart disease of native coronary artery without angina pectoris; I34.1 Nonrheumatic mitral (valve) prolapse; Z95.5 Presence of coronary angioplasty implant and graft; Z90.49 Acquired absence of other specified parts of digestive tract; Z90.89 Acquired absence of other organs; Z71.6 Tobacco abuse counseling; Y93.89 Activity, other specified; Y92.098 Other place in other non-institutional residence as the place of occurrence of the external cause; Y99.8 Other external cause status; Z88.1 Allergy status to other antibiotic agents; Z88.5 Allergy status to narcotic agent; Z88.0 Allergy status to penicillin; Z88.2 Allergy status to sulfonamides; Z88.8 Allergy status to other drugs, medicaments and biological substances; Z79.899 Other long term (current) drug therapy; Z79.82 Long term (current) use of aspirin; Z79.51 Long term (current) use of inhaled steroids; Z83.3 Family history of diabetes mellitus; Z82.49 Family history of ischemic heart disease and other diseases of the circulatory system; Z82.5 Family history of asthma and other chronic lower respiratory diseases; Z79.84 Long term (current) use of oral hypoglycemic drugs
CPT/HCPCS: 36415; 36600; 71045; 73523; 80048; 82040; 82803; 84145; 84484; 85025; 93005; 93306; 94640; 99285; G0378; J1650; J1956; J7613; J7626; J2920; J7030

== ENCOUNTER 2019-03-30 01:43 | Emergency (ER) | payer MEDICARE, MEDICAID ==
[~2019-03-30 01:43] MED LIST changes: +ACID1TAB7 PO; +ATOR40TA78 PO; +HYDR-3343 PO; +OLAN20TA10 PO; +SENN-193 PO
[2019-03-30 01:45] VITALS: BP 103/62
[2019-08-05] MEDS ORDERED: ZOLP5TAB6 PO (17:57)
[2019-08-05] MEDS ORDERED: SIMV20TA19 PO (17:57)
[2019-08-05] MEDS ORDERED: ACID1CAP PO (17:57)
[2019-08-05] MEDS ORDERED: GABA-827 PO (17:57)
[2019-08-05] MEDS ORDERED: DOCU100C33 PO (17:57)
[2019-08-05] MEDS ORDERED: OLAN10TA7 PO (17:57)
[2019-08-05] MEDS ORDERED: HYDR-3245 PO (17:57)
[2019-08-05] MEDS ORDERED: TIOT18CA INH (18:14)
[2019-08-05] MEDS ORDERED: LAMO100T8 PO (18:14)
[2019-08-05] MEDS ORDERED: NALO0.4D2 IM (18:14)
[2019-08-05] MEDS ORDERED: NITR100C PO (18:14)
[2019-08-05] MEDS ORDERED: TRAM50TA2 PO (18:14)
[2019-08-05] MEDS ORDERED: PRED20TA PO (18:14)
[2019-08-05] MEDS ORDERED: BENZ-17 PO (18:14)
[2019-08-05] MEDS ORDERED: HALO5TAB5 PO (18:14)
[2019-08-05] MEDS ORDERED: LACT10SO PO-COUM (18:14)
[2019-08-05] MEDS ORDERED: NITR0.4T28 SL (18:14)
[2019-08-05] MEDS ORDERED: ERGO500017 PO (18:14)
[2019-08-05] MEDS ORDERED: LACT1CAP3 PO (18:14)
[2019-08-05] MEDS ORDERED: IBUP-1223 PO (18:14)
[2019-08-05] MEDS ORDERED: CLIN300C8 PO (18:14)
[2019-08-05] MEDS ORDERED: NICO-487 TD (18:14)
[2019-08-05] MEDS ORDERED: NALO25TA PO (18:14)
[2019-08-05] MEDS ORDERED: ALBUTEROL SUL 90 MCG INH (18:21)
[2019-08-05] MEDS ORDERED: VITAMIN B-12 INJ (18:24)
[2019-08-05] MEDS ORDERED: LIDO700A20 TD (18:26)
[2019-08-05] MEDS ORDERED: VISCOUS LIDOCAINE EXT (18:28)
[2019-08-05] MEDS ORDERED: L. A1CAP8 PO (18:30)
[2019-08-05] MEDS ORDERED: SENN1TAB94 PO (18:32)
[2019-08-05] MEDS ORDERED: PLEC3TAB PO (18:32)
[2019-08-05] MEDS ORDERED: VERA120T8 PO (18:32)
[2019-08-05] MEDS ORDERED: VIT1TABL46 PO (18:34)
[2019-08-06] MEDS ORDERED: METO-99 PO (11:14)
[2019-08-06] MEDS ORDERED: ACET-1600 PO (11:14)
[2019-08-06] MEDS ORDERED: CYCL-259 PO (11:14)
[2019-08-06] MEDS ORDERED: ERGO500018 PO (11:14)
[2019-08-06] MEDS ORDERED: FLUT9.9S NAS (11:14)
== END 2019-03-30 04:14 | disposition home or self-care (01) ==
LOC: ED 02:44
DX: S09.90XA Unspecified injury of head, initial encounter (principal); M54.5 Low back pain; I10 Essential (primary) hypertension; R51 Headache; W19.XXXA Unspecified fall, initial encounter; Y93.89 Activity, other specified; Y92.098 Other place in other non-institutional residence as the place of occurrence of the external cause; Y99.8 Other external cause status
CPT/HCPCS: 36415; 70450; 72131; 80048; 80307; 82040; 85025; 99283; 99284

== ENCOUNTER 2019-03-30 22:27 | Emergency (ER) | payer MEDICARE, MEDICAID ==
[~2019-03-30] VITALS: Ht 162.6 cm; Wt 75.0 kg
[~2019-03-30 22:27] MED LIST changes: -HYDR-3246 PO; +HYDR-36 PO; +TIZA2TAB2 PO; -TIZA2TAB4 PO
--- NOTE | 2019-03-30 22:43 | NUR ---
PT BIB EMS TRANSFER FROM [facility], WENT TO [facility] EARLIER TODAY AND SAID SHE WANTED TO KILL HERSELF BY OVERDOSING ON COCAINE AND HEROIN. PT BELONGINGS 7 OF 7 REMOVED AND PLACED IN LOCKER AT THIS TIME. PT PLACED IN GOWN, SITTER IN HALLWAY WITHIN LINE OF SIGHT. ERP AT BS TO ALYSHA PT.
[2019-03-30 22:49] VITALS: BP 152/70
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
--- NOTE | 2019-03-30 23:10 | NUR ---
ROOM SECURED, SITTER IN HALLWAY WITHIN LINE OF SIGHT.
[2019-03-30 23:11] LABS: BASOPHILS # (AUTO) 0.01 x10^3/uL (0-0.1); BASOPHILS % (AUTO) 0 % (0-1); EOSINOPHILS # (AUTO) 0.12 x10^3/uL (0-0.4); EOSINOPHILS % (AUTO) 2 % (1-7); LYMPHOCYTES # (AUTO) 2.38 x10^3/uL (1-3.4); LYMPHOCYTES % (AUTO) 29 % (22-44); MD NO; MEAN CORPUSCULAR HEMOGLOBIN 32.1 pg (27.0-34.8); MEAN CORPUSCULAR HGB CONC 33.7 g/dL (32.4-35.8); MEAN CORPUSCULAR VOLUME 95.1 fL (80-100); MEAN PLATELET VOLUME 7.3 fL (7.4-10.4); MONOCYTES # (AUTO) 0.53 x10^3/uL (0.2-0.8); MONOCYTES % (AUTO) 7 % (2-9); NEUTROPHILS # (AUTO) 5.14 x10^3/uL (1.8-6.8); NEUTROPHILS % (AUTO) 63 % (42-75); PLATELET COUNT 259 x10^3/uL (130-400); RED CELL DISTRIBUTION WIDTH 14.4 % (9.6-15.2)
[2019-03-30 23:23] LABS: ALBUMIN 3.7 g/dL (3.4-5.0); ANION GAP 5 mmol/L (5-15); CALCIUM 8.9 mg/dL (8.5-10.1); CHLORIDE 106 mmol/L (98-107); CREATININE 1.23 mg/dL (0.55-1.02)
[2019-03-30 23:25] LABS: SALICYLATE LEVEL < 1.7 mg/dL (2.8-20.0)
--- NOTE | 2019-03-30 23:25 | NUR ---
UA REQUESTED, PT DECLINE TO GIVE UA AT THIS TIME.
[2019-03-30 23:54] LABS: AMPHETAMINE SCREEN, URINE Negative (Negative); BARBITURATE SCREEN, URINE Negative (Negative); BENZODIAZEPINE SCREEN, URINE Negative (Negative); CANNABINOID SCREEN, URINE Negative (Negative); COCAINE SCREEN, URINE Negative (Negative); METHADONE SCREEN, URINE Negative (Negative); OPIATE SCREEN, URINE Positive (Negative)
--- NOTE | 2019-03-31 00:19 | NUR ---
TELEPSYCH COMPUTER IN ROOM.
--- NOTE | 2019-03-31 00:23 | NUR ---
PT RESTING ON [email or web address] WATCHING TV, PROVIDED SNACK AND WARM BLANKET UPON REQUEST. PT UPDATED ON POC. ROOM SECURED, SITTER IN HALLWAY WITHIN LINE OF SIGHT.
--- NOTE | 2019-03-31 01:16 | NUR ---
GAVE REPORT TO TELEPSYCH MD, TO CALL PT ON TELEPSYCH COMPUTER.
--- NOTE | 2019-03-31 02:20 | NUR ---
MENTAL HEALTH CRISIS PACKET DECERTIFIED BY DR. LUTZ.
== END 2019-03-31 02:22 | disposition home or self-care (01) ==
LOC: ED 23:27
DX: F41.1 Generalized anxiety disorder (principal); F31.9 Bipolar disorder, unspecified; R45.851 Suicidal ideations; I10 Essential (primary) hypertension; E11.9 Type 2 diabetes mellitus without complications; J44.9 Chronic obstructive pulmonary disease, unspecified; F99 Mental disorder, not otherwise specified; Z72.9 Problem related to lifestyle, unspecified; Z75.9 Unspecified problem related to medical facilities and other health care; Z63.8 Other specified problems related to primary support group; Z90.49 Acquired absence of other specified parts of digestive tract
CPT/HCPCS: 36415; 80048; 80307; 82040; 85025; 99283; 99284

== ENCOUNTER → 2019-05-04 | Outpatient (CLI) | payer MEDICARE, MEDICAID ==
[2019-05-04 11:09] LABS: HCT (SEDRATE) 38.1 % (34.6-47.8)
[2019-05-04 11:21] LABS: ALBUMIN 3.4 g/dL (3.4-5.0); BILIRUBIN, DIRECT 0.1 mg/dL (0.1-0.2)
[2019-05-04 11:23] LABS: BILIRUBIN,INDIRECT 0.2 mg/dL (0.0-2.0); BILIRUBIN,TOTAL 0.3 mg/dL (0.2-1.0); TOTAL PROTEIN 7.2 g/dL (6.4-8.2)
[2019-05-06 14:24] LABS: ANA SCREEN POSITIVE (Negative); ANTI-NUCLEAR ANTIBODY PATTERN SPECKLED
== END | disposition home or self-care (01) ==
LOC: LAB 10:46
PROVIDERS: ATTEND Physician Assistant
DX: M05.9 Rheumatoid arthritis with rheumatoid factor, unspecified (principal); B18.2 Chronic viral hepatitis C; R76.8 Other specified abnormal immunological findings in serum; R74.8 Abnormal levels of other serum enzymes; Z88.0 Allergy status to penicillin; Z88.5 Allergy status to narcotic agent; Z88.8 Allergy status to other drugs, medicaments and biological substances
CPT/HCPCS: 36415; 80076; 85651; 86038; 86039; 86200; 86225; 86430; 87517; 87522

== ENCOUNTER 2019-05-28 10:14 | Outpatient (CLI) | payer MEDICARE, MEDICAID | END 2019-05-28 23:59 | disposition home or self-care (01) | LOC: CFH 10:14 | PROVIDERS: ATTEND Nurse Practitioner Psychiatric/Mental Health | DX: J98.4 Other disorders of lung (principal); M05.9 Rheumatoid arthritis with rheumatoid factor, unspecified | CPT/HCPCS: 71046 ==

== ENCOUNTER 2019-08-01 06:14 | Emergency (ER) | payer MEDICARE, MEDICAID ==
[~2019-08-01] VITALS: Ht 160 cm; Wt 78.0 kg
--- NOTE | 2019-08-01 06:32 | NUR ---
patient refused ekg in triage. stated "you're upsetting me".
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
--- NOTE | 2019-08-01 07:25 | NUR ---
PT REFUSING TO GET INTO GOWN. PT STATING "I'M DESATING, I NEED OXYGEN" PT SATING AT 94% ON RA. PT EDUCATED TO TAKE DEEP BREATHS, COMPLIANT.
[2019-08-01 07:40] LABS: MICROSCOPIC INDICATED
[2019-08-01] MEDS ORDERED: hydrOXyzine 50MG TABLET ONE (08:26)
[2019-08-01] MEDS ORDERED: KETOROLAC 30 MG/1 ML ONE (08:26)
[2019-08-01] MEDS ORDERED: hydrOXyzine 50MG TABLET PO ONE (08:30)
[2019-08-01] MEDS ORDERED: KETOROLAC 30 MG/1 ML IM ONE (08:30)
[2019-08-01 08:35] VITALS: BP 154/77
== END 2019-08-01 08:55 | disposition home or self-care (01) ==
LOC: ED 08:46
DX: J44.1 Chronic obstructive pulmonary disease with (acute) exacerbation (principal); N30.00 Acute cystitis without hematuria; F41.1 Generalized anxiety disorder; R00.0 Tachycardia, unspecified; J44.9 Chronic obstructive pulmonary disease, unspecified; E11.9 Type 2 diabetes mellitus without complications; I10 Essential (primary) hypertension; I34.1 Nonrheumatic mitral (valve) prolapse
CPT/HCPCS: 71045; 81001; 87077; 87086; 96372; 99284; J1885; J7512; Q0177; 87186

== ENCOUNTER 2019-08-09 15:25 | Inpatient (IN) | payer MEDICARE, MEDICAID ==
[~2019-08-09] VITALS: Ht 160 cm; Wt 77.1 kg
[~2019-08-09 15:25] MED LIST changes: +ACET-1600 PO; +ACID1CAP PO; +ALBUTEROL SUL 90 MCG INH; +BENZ-17 PO; +CLIN300C8 PO; +DOCU100C33 PO; +ERGO500017 PO; +ERGO500018 PO; +GABA-827 PO; +HALO5TAB5 PO; +HYDR-3245 PO; +HYDR-3246 PO; -HYDR-36 PO; +IBUP-1223 PO; +L. A1CAP8 PO; +LACT10SO PO-COUM; +LACT1CAP3 PO; +LAMO100T8 PO; +LIDO700A20 TD; +NALO0.4D2 IM; +NALO25TA PO; +NICO-487 TD; +NITR0.4T28 SL; +NITR100C PO; +OLAN10TA7 PO; +PLEC3TAB PO; +PRED20TA PO; +SENN1TAB94 PO; +SIMV20TA19 PO; +TIOT18CA INH; -TIZA2TAB2 PO; +TIZA2TAB4 PO; +VERA120T8 PO; +VISCOUS LIDOCAINE EXT; +VIT1TABL46 PO; +VITAMIN B-12 INJ
[2019-08-09] MEDS ORDERED: HYDR-3343 PO (15:36)
[2019-08-09] MEDS ORDERED: HYDR-826 PO (15:36)
[2019-08-09] MEDS ORDERED: POLYETHYLENE GLYCOL 17 GM PACKET PO PRN (18:30)
[2019-08-09] MEDS ORDERED: BISACODYL 10 MG SUPP PR PRN (18:30)
[2019-08-09 20:39] VITALS: BP 150/78
[2019-08-09 21:35] VITALS: BP 150/78
[2019-08-09 23:19] LABS: MICROSCOPIC NOT IND
[2019-08-10 06:01] LABS: ALBUMIN 3.5 g/dL (3.4-5.0); BILIRUBIN, DIRECT 0.1 mg/dL (0.1-0.2)
[2019-08-10 06:03] LABS: BILIRUBIN,INDIRECT 0.2 mg/dL (0.0-2.0); BILIRUBIN,TOTAL 0.3 mg/dL (0.2-1.0); CHOL/HDL RATIO 3.9; LDL/HDL RATIO 1.4 (0.5-3.0)
[2019-08-10 07:23] VITALS: BP 135/85
[2019-08-10] MEDS: ACETAMINOPHEN 325 MG TABLET PO PRN (11:11)
[2019-08-10] MEDS: LAMOTRIGINE 25 MG TABLET PO SCH ×2 (14:48→21:12)
[2019-08-10 19:54] VITALS: BP 138/82
[2019-08-10] MEDS: OLANZAPINE ODT 10MG PO SCH ×2 (21:00→21:13)
[2019-08-11 07:19] VITALS: BP 115/70
[2019-08-11] MEDS: LAMOTRIGINE 25 MG TABLET PO SCH ×2 (09:05→20:57)
[2019-08-11] MEDS: OLANZAPINE ODT 10MG PO SCH ×3 (09:05→21:05)
[2019-08-11] MEDS: ACETAMINOPHEN 325 MG TABLET PO PRN ×2 (09:19→20:57)
[2019-08-11] MEDS ORDERED: HYDROcodone/APAP 10/325 MG TABLET PO PRN (12:00)
[2019-08-11] MEDS ORDERED: ONDANSETRON 4 MG TABLET PO PRN (12:00)
[2019-08-11 17:59] VITALS: BP 125/62
[2019-08-11] MEDS: METOPROLOL TARTRATE 100 MG TAB PO SCH (17:59)
[2019-08-11 19:55] VITALS: BP 102/66
[2019-08-11] MEDS: BUDESONIDE 0.5 MG/2 ML INHA NPPB SCH (20:53)
[2019-08-11] MEDS ORDERED: SIMVASTATIN 10 MG TABLET ONE (20:53)
[2019-08-11] MEDS: ALBUTEROL SULFATE 2.5 MG/3 ML NPPB PRN (20:53)
[2019-08-11] MEDS: GABAPENTIN 400 MG CAPSULE PO SCH (20:56)
[2019-08-11] MEDS: SIMVASTATIN 20 MG TABLET PO SCH (20:56)
[2019-08-12 04:58] VITALS: BP 134/82
[2019-08-12] MEDS: METOPROLOL TARTRATE 100 MG TAB PO SCH ×2 (05:41→17:39)
[2019-08-12] MEDS: OMEPRAZOLE 20 MG CAPSULE.DR PO SCH (05:44)
[2019-08-12 07:39] VITALS: BP 129/84
[2019-08-12] MEDS: GABAPENTIN 400 MG CAPSULE PO SCH ×2 (08:45→20:43)
[2019-08-12] MEDS: OLANZAPINE ODT 10MG PO SCH ×3 (08:46→21:00)
[2019-08-12] MEDS: LOSARTAN 50MG TABLET PO SCH (08:46)
[2019-08-12] MEDS: LACTOBACILLUS CHEW TABLET PO SCH (08:46)
[2019-08-12] MEDS: LAMOTRIGINE 25 MG TABLET PO SCH ×2 (08:47→20:42)
[2019-08-12] MEDS: DOCUSATE 100 MG CAPSULE PO SCH (08:47)
[2019-08-12] MEDS: ACETAMINOPHEN 325 MG TABLET PO PRN ×3 (08:52→19:40)
[2019-08-12] MEDS ORDERED: LOSARTAN 100 MG TAB PO SCH (09:00)
[2019-08-12] MEDS: BUDESONIDE 0.5 MG/2 ML INHA NPPB SCH ×2 (09:25→18:40)
[2019-08-12 17:34] VITALS: BP 119/84
[2019-08-12] MEDS: ALBUTEROL SULFATE 2.5 MG/3 ML NPPB PRN (18:40)
[2019-08-12 19:50] VITALS: BP 126/81
[2019-08-12] MEDS: SIMVASTATIN 20 MG TABLET PO SCH (20:43)
[2019-08-13] MEDS: OMEPRAZOLE 20 MG CAPSULE.DR PO SCH (05:49)
[2019-08-13] MEDS: METOPROLOL TARTRATE 100 MG TAB PO SCH (05:49)
[2019-08-13 07:00] VITALS: BP 133/82
[2019-08-13] MEDS: DOCUSATE 100 MG CAPSULE PO SCH (08:12)
[2019-08-13] MEDS: LACTOBACILLUS CHEW TABLET PO SCH (08:12)
[2019-08-13] MEDS: OLANZAPINE ODT 10MG PO SCH (08:12)
[2019-08-13] MEDS: GABAPENTIN 400 MG CAPSULE PO SCH (08:13)
[2019-08-13] MEDS: LAMOTRIGINE 25 MG TABLET PO SCH (08:13)
[2019-08-13] MEDS: LOSARTAN 50MG TABLET PO SCH (08:13)
[2019-08-13] MEDS: BUDESONIDE 0.5 MG/2 ML INHA NPPB SCH (09:15)
[2019-08-13] MEDS ORDERED: LAMO25TA9 PO (11:58)
[2019-08-13] MEDS ORDERED: OLAN10TA7 PO ×2 (11:58)
== END 2019-08-13 13:45 | disposition home or self-care (01) | DRG 885 ==
LOC: 3E 20:28
PROVIDERS: ADMIT Psychiatry & Neurology Psychosomatic Medicine; ATTEND Psychiatry & Neurology Psychosomatic Medicine
DX: F31.5 Bipolar disorder, current episode depressed, severe, with psychotic features (principal); G92 Toxic encephalopathy; N17.0 Acute kidney failure with tubular necrosis; Z88.6 Allergy status to analgesic agent; Z88.0 Allergy status to penicillin; Z88.2 Allergy status to sulfonamides; Z88.8 Allergy status to other drugs, medicaments and biological substances; B19.20 Unspecified viral hepatitis C without hepatic coma; F17.210 Nicotine dependence, cigarettes, uncomplicated; F43.10 Post-traumatic stress disorder, unspecified; F60.3 Borderline personality disorder; G89.4 Chronic pain syndrome; I10 Essential (primary) hypertension; I25.10 Atherosclerotic heart disease of native coronary artery without angina pectoris; J44.9 Chronic obstructive pulmonary disease, unspecified; R09.02 Hypoxemia; Z79.899 Other long term (current) drug therapy; Z82.49 Family history of ischemic heart disease and other diseases of the circulatory system; Z82.5 Family history of asthma and other chronic lower respiratory diseases; Z83.3 Family history of diabetes mellitus; Z95.5 Presence of coronary angioplasty implant and graft
CPT/HCPCS: 36415; 80061; 80076; 81003; 82140; 94640; J7613; J7626; Q0177

== ENCOUNTER 2019-09-27 18:21 | Emergency (ER) | payer MEDICARE, MEDICAID ==
[~2019-09-27] VITALS: Ht 162.6 cm; Wt 79.0 kg
[~2019-09-27 18:21] MED LIST changes: +HYDR-826 PO; +LAMO25TA9 PO
[2019-09-27] MEDS ORDERED: KETOROLAC 30 MG/1 ML ONE (19:24)
[2019-09-27] MEDS ORDERED: METHOCARBAMOL 750 MG TABLET ONE (19:24)
[2019-09-27] MEDS ORDERED: METHOCARBAMOL 750 MG TABLET PO ONE (19:30)
[2019-09-27] MEDS ORDERED: KETOROLAC 30 MG/1 ML IM ONE (19:30)
--- NOTE | 2019-09-27 19:33 | NUR ---
Pt to XRAY
--- NOTE | 2019-09-27 19:36 | NUR ---
Pt states pain "all over" from "doing too much". Pt states pain is 24/10. Pt speaking in contiunous run-on sentences. Refuses to put on gown.
--- NOTE | 2019-09-27 20:02 | NUR ---
Pt states pain improved
--- NOTE | 2019-09-27 20:06 | NUR ---
Pt provided with ice pack
[2019-09-27 21:08] VITALS: BP 128/77
--- NOTE | 2019-09-27 21:09 | NUR ---
Pt provided with C collar per request
== END 2019-09-27 21:15 | disposition home or self-care (01) ==
LOC: ED 20:56
DX: M54.2 Cervicalgia (principal); F17.210 Nicotine dependence, cigarettes, uncomplicated; F15.10 Other stimulant abuse, uncomplicated; F11.10 Opioid abuse, uncomplicated; Z72.9 Problem related to lifestyle, unspecified; I10 Essential (primary) hypertension; E11.9 Type 2 diabetes mellitus without complications; J44.9 Chronic obstructive pulmonary disease, unspecified; Z90.89 Acquired absence of other organs; Z90.49 Acquired absence of other specified parts of digestive tract
CPT/HCPCS: 72050; 96372; 99283; J1885

== ENCOUNTER 2019-10-05 23:44 | Emergency (ER) | payer MEDICARE, MEDICAID ==
[~2019-10-05] VITALS: Ht 165.1 cm; Wt 75.0 kg
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
[2019-10-06] MEDS ORDERED: DIAZEPAM 5 MG TABLET ONE (00:09)
[2019-10-06] MEDS ORDERED: KETOROLAC 30 MG/1 ML ONE (00:09)
[2019-10-06] MEDS ORDERED: KETOROLAC 30 MG/1 ML IM ONE (00:30)
[2019-10-06] MEDS ORDERED: DIAZEPAM 5 MG TABLET PO ONE (00:30)
--- NOTE | 2019-10-06 00:46 | NUR ---
Pt sleeping with resp even and unlabored. VSS. Pt wakes easily to verbal. Warm blanket provided. Awaiting CT. Call light in reach.
--- NOTE | 2019-10-06 00:58 | NUR ---
Pt to CT via leoncio
--- NOTE | 2019-10-06 01:20 | NUR ---
Report to Justin SCHULZ
--- NOTE | 2019-10-06 02:44 | NUR ---
re-evaluation done. patient discharged with prescription and instruction. verbalized understanding.
[2019-10-06 02:45] VITALS: BP 101/41
== END 2019-10-06 02:48 | disposition home or self-care (01) ==
LOC: ED 10-06 00:30
DX: G89.29 Other chronic pain (principal); M54.2 Cervicalgia; M47.9 Spondylosis, unspecified; I10 Essential (primary) hypertension
CPT/HCPCS: 72125; 96372; 99284; J1885

== ENCOUNTER → 2019-12-27 | Outpatient (CLI) | payer MEDICARE, MEDICAID | END | disposition home or self-care (01) | LOC: CFH 11:59 | PROVIDERS: ATTEND Physician Assistant | DX: K59.00 Constipation, unspecified (principal); M43.26 Fusion of spine, lumbar region; R14.0 Abdominal distension (gaseous); Z90.49 Acquired absence of other specified parts of digestive tract | CPT/HCPCS: 74018 ==

== ENCOUNTER → 2020-04-08 | Outpatient (CLI) | payer MEDICARE, MEDICAID ==
[~2020-04-08] MED LIST changes: -CALC-545 PO; +CALC-780 PO; -CLIN300C8 PO; +CLIN300C9 PO; -HYDR-3246 PO; +HYDR-3248 PO; -NALO25TA PO; +NALO25TA4 PO; -NICO-487 TD; +NICO-587 TD; -PLEC3TAB PO; +PLEC3TAB2 PO; -RISP0.5T3 PO; +RISP0.5T62 PO; +TIZA-106 PO; -TIZA2TAB4 PO
[2020-04-08 13:41] LABS: BASOPHILS % (AUTO) 1 % (0-1); EOSINOPHILS % (AUTO) 1 % (1-7); LYMPHOCYTES % (AUTO) 24 % (22-44); MD NO; MEAN CORPUSCULAR HEMOGLOBIN 33.3 pg (27.0-34.8); MEAN CORPUSCULAR HGB CONC 34.6 g/dL (32.4-35.8); MEAN PLATELET VOLUME 8.2 fL (7.4-10.4); MONOCYTES % (AUTO) 4 % (2-9); NEUTROPHILS % (AUTO) 71 % (42-75); PLATELET COUNT 239 x10^3/uL (130-400); RED BLOOD COUNT 4.06 x10^6/uL (3.82-5.3); RED CELL DISTRIBUTION WIDTH 12.4 % (9.6-15.2)
[2020-04-08 13:46] LABS: ALANINE AMINOTRANSFERASE 22 U/L (12-78); ANION GAP 7 mmol/L (5-15); CALCIUM 9.2 mg/dL (8.5-10.1); CHLORIDE 108 mmol/L (98-107); CHOLESTEROL, TOTAL 143 mg/dL (140-239); CREATININE 0.98 mg/dL (0.55-1.02)
[2020-04-08 13:49] LABS: ALKALINE PHOSPHATASE 76 U/L (45-117); BILIRUBIN,TOTAL 0.4 mg/dL (0.2-1.0); HDL CHOLESTEROL (DIRECT) 57 mg/dL (40-60); TOTAL PROTEIN 7.3 g/dL (6.4-8.2); TRIGLYCERIDES 69 mg/dL (50-200)
[2020-04-10 08:14] LABS: FREE T4 (FREE THYROXINE) 1.06 ng/dL (0.76-1.46)
== END | disposition home or self-care (01) ==
LOC: RAD 11:52
PROVIDERS: ATTEND Nurse Practitioner Psychiatric/Mental Health
DX: S33.39XA Dislocation of other parts of lumbar spine and pelvis, initial encounter (principal); M79.89 Other specified soft tissue disorders; M17.11 Unilateral primary osteoarthritis, right knee; M25.761 Osteophyte, right knee; M41.86 Other forms of scoliosis, lumbar region; R09.02 Hypoxemia; F31.9 Bipolar disorder, unspecified; E34.9 Endocrine disorder, unspecified; X58.XXXA Exposure to other specified factors, initial encounter; Y93.89 Activity, other specified; Y92.89 Other specified places as the place of occurrence of the external cause; Y99.8 Other external cause status
CPT/HCPCS: 36415; 72110; 80053; 82465; 82672; 83036; 83718; 83721; 84144; 84439; 84443; 84478; 84479; 85025